=== PATIENT | female | born 2000 | race Two or more races ===

== ENCOUNTER 2025-05-13 06:02 | Inpatient (IN) | payer OTHER ==
[~2025-05-13] VITALS: Ht 162.6 cm; Wt 83.5 kg
[2025-05-13] MEDS ORDERED: OXYTOCIN/0.9 % SODIUM CHLORIDE 30 UNITS/500 ML BAG IV SCH (06:30)
[2025-05-13] MEDS ORDERED: TERBUTALINE SULFATE 1 MG/ML AMP SUB-Q PRN (06:30)
[2025-05-13] MEDS ORDERED: MAGNESIUM HYDROXIDE/AL HYDROX 30 ML CUP PO PRN (06:30)
[2025-05-13] MEDS ORDERED: LACTATED RINGER'S 1,000 ML IV PRN ×2 (06:30→12:15)
[2025-05-13] MEDS ORDERED: LACTATED RINGER'S 1,000 ML IV SCH ×3 (06:30→18:45)
[2025-05-13] MEDS ORDERED: LIDOCAINE HCL 1% 30 ML SDV INJ PRN (06:30)
[2025-05-13] MEDS ORDERED: CALCIUM CARBONATE 500 MG CHEW PO PRN (06:30)
[2025-05-13 06:37] LABS: MCH 23.4 PG (25.6-32.2); MCHC 31.7 g/dL (32.2-35.5); MCV 73.7 fL (79.4-94.8); RBC 4.19 M/uL (3.93-5.22)
[2025-05-13 07:07] LABS: ABO O; ANTIBODY SCREEN NEGATIVE; RH POSITIVE
[2025-05-13 07:14] LABS: AMPHETAMINES, URINE NEGATIVE (NEGATIVE); BARBITURATES, URINE NEGATIVE (NEGATIVE); BENZODIAZEPINE, URINE NEGATIVE (NEGATIVE); CANNABINOID, URINE NEGATIVE (NEGATIVE); COCAINE, URINE NEGATIVE (NEGATIVE); ECSTASY, URINE NEGATIVE (NEGATIVE); FENTANYL, URINE NEGATIVE (NEGATIVE); METHADONE, URINE NEGATIVE (NEGATIVE); OPIATES, URINE NEGATIVE (NEGATIVE); OXYCODONE, URINE NEGATIVE (NEGATIVE); PHENCYCLIDINE, URINE NEGATIVE (NEGATIVE)
[2025-05-13 07:15] VITALS: BP 111/72
[2025-05-13] MEDS ORDERED: OXYTOCIN/0.9 % SODIUM CHLORIDE 500 ML IV SCH ×2 (10:30→17:00)
[2025-05-13] MEDS ORDERED: LIDOCAINE 2% VISCOUS 6 ML SYR TOP ONE ×2 (12:15→17:00)
[2025-05-13] MEDS ORDERED: CEFAZOLIN SODIUM 2 GM in SODIUM CHLORIDE 0.9% 100 ML IV SCH (12:20)
[2025-05-13] MEDS ORDERED: BUPIVACAINE 0.75% IN DEXTROSE 2 ML AMP ONE (15:05)
[2025-05-13] MEDS ORDERED: LIDOCAINE HCL 2% 5 ML SDV ONE (15:05)
[2025-05-13] MEDS ORDERED: PHENYLEPHRINE HCL IN 0.9% NACL 1 MG/10 ML SYR ONE (15:06)
[2025-05-13] MEDS ORDERED: DEXAMETHASONE SOD PHOS 4 MG/ML VIAL ONE ×2 (15:06→16:15)
[2025-05-13] MEDS ORDERED: TRANEXAMIC ACID IN NACL,ISO-OS 0 ML IV ONE (15:10)
[2025-05-13] MEDS ORDERED: SODIUM CHLORIDE 0.9% 20 ML IV ONE (15:15)
[2025-05-13] MEDS ORDERED: LIDOCAINE 2% VISCOUS 6 ML SYR ONE (15:22)
[2025-05-13] MEDS ORDERED: OXYTOCIN 10 UNITS/ML VIAL ONE (15:54)
[2025-05-13] MEDS ORDERED: ATROPINE SULFATE 1 MG/ML VIAL ONE (15:56)
[2025-05-13] MEDS ORDERED: LACTATED RINGER'S 1,000 ML IV ONE (16:13)
[2025-05-13] MEDS ORDERED: SODIUM CHLORIDE 0.9% 60 ML IV ONE (16:15)
[2025-05-13] MEDS ORDERED: Ropivacaine HCl 0.5% 30 ML VIAL ONE (16:15)
[2025-05-13] MEDS ORDERED: METOCLOPRAMIDE HCL 10 MG/2 ML SDV IV PRN (17:00)
[2025-05-13] MEDS ORDERED: PROMETHAZINE HCL 25 MG SUPP PR PRN (17:00)
[2025-05-13] MEDS ORDERED: OXYCODONE/APAP 5/325 TAB PO PRN (17:00)
[2025-05-13] MEDS ORDERED: HYDROCODONE/ACETA 5/325 TAB PO PRN (17:00)
[2025-05-13] MEDS ORDERED: PROMETHAZINE HCL 25 MG TAB PO PRN (17:00)
[2025-05-13] MEDS ORDERED: OXYCODONE HCL 5 MG TAB PO PRN (17:00)
[2025-05-13] MEDS ORDERED: PROCHLORPERAZINE EDISYLATE 10 MG/2 ML VIAL IV PRN (17:00)
[2025-05-13 17:23] LABS: MCH 23.6 PG (25.6-32.2); MCHC 31.7 g/dL (32.2-35.5); MCV 74.5 fL (79.4-94.8); RBC 3.77 M/uL (3.93-5.22)
--- NOTE | 2025-05-13 17:23 | NUR ---
05/13/25 1723 Guadalupe Godoy 1643 PT ARRIVED TO PACU ON RA, PT DENIES CONCERNS. NO NAUSEA OR PAIN. VSS. PT UNABLE TO MOVE LEGS AND EDUCATION GIVEN. IV IN LEFT HAND, PLACED IN THE OR AND INFUSING WELL AND WNL. LEFT FORE ARM IV SL. HOB INCREASED SLIGHTLY PER REQUEST. 1700 PT RESTING IN BED AND DENIES CONCERNS. 1708 MD AT BEDSIDE TALKING TO PT.
[2025-05-13 17:25] VITALS: BP 134/80
[2025-05-13 17:38] LABS: INR 0.97 (0.80-1.30); PROTIME 12.2 Sec (11.2-14.2)
[2025-05-13] MEDS ORDERED: ACETAMINOPHEN 325 MG TAB PO PRN (17:45)
[2025-05-13 17:59] LABS: AST (SGOT) 19 U/L (15-37); GLOMERULAR FILTRATION RATE,EST 139 mL/min (>60); LACTATE DEHYDROGENASE 176 U/L (81-234); PROTEIN, TOTAL 6.8 g/dL (6.4-8.2); UREA NITROGEN 5 mg/dL (7-18)
[2025-05-13] MEDS ORDERED: KETOROLAC TROMETHAMINE 30 MG/ML VIAL IV PRN (18:00)
[2025-05-13] MEDS ORDERED: NALOXONE HCL 0.4 MG SYR IV PRN (18:00)
[2025-05-13] MEDS ORDERED: MORPHINE SULFATE 4 MG/ML VIAL IV PRN (18:00)
[2025-05-13] MEDS ORDERED: HYDROmorphone HCL 1 MG/ML SYR IV PRN (18:00)
[2025-05-13 18:01] LABS: ALT (SGPT) <6 U/L (14-59)
[2025-05-13 18:02] LABS: PROTEIN, RANDOM URINE 159.0 mg/dL (NOT ESTABLISHED)
[2025-05-13] MEDS ORDERED: CALCIUM GLUCONATE 1,000 MG/10 ML VIAL IV PRN (18:45)
[2025-05-13] MEDS ORDERED: MAGNESIUM SULFATE 500 ML IV SCH (18:45)
[2025-05-13] MEDS ORDERED: MAGNESIUM SULFATE 4 GM/100 ML BAG IV ONE (18:45)
[2025-05-13] MEDS ORDERED: KETOROLAC TROMETHAMINE 30 MG/ML VIAL IV SCH (20:00)
[2025-05-13 21:00] LABS: BASOPHILS 0.3 % (0.1-1.2); EOSINOPHILS 0.1 % (0.7-5.8); LYMPHOCYTES 9.7 % (19.3-51.7); MCH 23.8 PG (25.6-32.2); MCHC 32.0 g/dL (32.2-35.5); MCV 74.5 fL (79.4-94.8); MONOCYTES 1.6 % (4.7-12.5); NEUTROPHILS 87.9 % (34.0-71.1); RBC 4.11 M/uL (3.93-5.22)
[2025-05-13] MEDS ORDERED: SIMETHICONE 80 MG CHEW PO SCH (21:00)
[2025-05-13] MEDS ORDERED: SENNOSIDES/DOCUSATE 1 EA TAB PO SCH (21:00)
[2025-05-13 21:11] LABS: INR 0.96 (0.80-1.30); PROTIME 12.4 Sec (11.2-14.2)
[2025-05-14 05:23] LABS: MCH 23.8 PG (25.6-32.2); MCHC 32.3 g/dL (32.2-35.5); MCV 73.7 fL (79.4-94.8); RBC 3.57 M/uL (3.93-5.22)
[2025-05-14 05:40] LABS: ALT (SGPT) 14.0 U/L (14-59); AST (SGOT) 19.0 U/L (15-37); GLOMERULAR FILTRATION RATE,EST 133.0 mL/min (>60); PROTEIN, TOTAL 6.4 g/dL (6.4-8.2); UREA NITROGEN 6.0 mg/dL (7-18)
--- NOTE | 2025-05-14 06:02 | EKG ---
[facility] [address] [place], [place] [address] Signed Normal sinus rhythm Nonspecific T wave abnormality Abnormal ECG No previous ECGs available Confirmed by MAGDALENA RAND MD ([id number]) on 05/14/2025 6:02:42 AM Electronically Signed By: MAGDALENA RAND 05/14/25 0602 PATIENT NAME: MATTHEW HERNANDEZDEBRA JONES Electrocardiogram DATE OF : [birth year] PHYSICIAN: MAGDALENA RAND REPORT #: [id number] REPORT IS CONFIDENTIAL AND NOT TO BE RELEASED WITHOUT AUTHORIZATION
[2025-05-14] MEDS ORDERED: IBLOOD GLUCOSE TEST STRIP 1 EA TEST XX PRN (09:15)
[2025-05-14] MEDS ORDERED: DEXTROSE 50% 50 ML SYR IV PRN ×2 (09:15)
[2025-05-14] MEDS ORDERED: GLUCAGON,HUMAN RECOMBINANT 1 MG/ML VIAL SUB-Q PRN (09:15)
[2025-05-14] MEDS ORDERED: DEXTROSE 5% 1,000 ML IV PRN (09:15)
[2025-05-14] MEDS ORDERED: IBLOOD GLUCOSE TEST STRIP 1 EA TEST VI SCH (12:00)
[2025-05-14] MEDS ORDERED: INSULIN LISPRO 100 UNIT/ML ML SUB-Q SCH (12:00)
[2025-05-14] MEDS ORDERED: IBUPROFEN 600 MG TAB PO SCH (20:00)
== END 2025-05-15 14:20 | disposition home or self-care (01) | DRG 788 ==
LOC: FBC 06:02
PROVIDERS: Nurse Anesthetist, Certified Registered; ADMIT Obstetrics & Gynecology; ATTEND Obstetrics & Gynecology
PROC: 10D00Z1 Extraction of Products of Conception, Low, Open Approach (ICD-10-PCS; principal; 2025-05-13 14:00)
DX: O36.63X0 Maternal care for excessive fetal growth, third trimester, not applicable or unspecified (principal); O64.4XX0 Obstructed labor due to shoulder presentation, not applicable or unspecified; O24.424 Gestational diabetes mellitus in childbirth, insulin controlled; O99.02 Anemia complicating childbirth; D50.9 Iron deficiency anemia, unspecified; Z3A.39 39 weeks gestation of pregnancy; Z37.0 Single live birth
CPT/HCPCS: 01961; 36415; 80053; 80307; 82565; 82570; 82947; 83615; 83735; 84156; 84550; 85025; 85027; 85384; 85610; 85730; 86850; 86900; 86901; 93005; 93010; A9270; J0165; J0461; J0688; J1100; J1815; J1885; J2003; J2405; J2590; J2795; J3475; J7121

== ENCOUNTER 2025-05-17 02:06 | Emergency (ER) | payer OTHER ==
[~2025-05-17] VITALS: Ht 162.6 cm; Wt 77.4 kg
--- OUTSIDE RECORDS SUMMARY | ~2025-05-17 | XMS | Continuity of Care Document ---
Demographics + + + | Address | [address] | | | [place] [address] | + + + | Preferred Language | Unknown | + + + | Marital Status | | + + + | Muslim Affiliation | Unknown | + + + | Race | Unknown | + + + | Ethnic Group | Unknown | + + + Author + + + | Author | [facility] | + + + | Organization | [facility] | + + + | Address | [address] | | | [place] [address] | + + + | Phone | | + + + Care Team Providers + + + + | Care Certified Tumor Registrar Name | Role | Phone | + + + + Unavailable | Unavailable | + + + + Unavailable | Unavailable | + + + + Unavailable | Unavailable | + + + + Allergies No information. Encounters No information. Functional Status No information. Immunizations No information. Medications No information. Problems No information. Procedures + + + + | date | description | facility | + + + + | 2025-05-13 00:00 | section | [facility] | | | | [facility] | + + + + | 2025-05-13 00:00 | section | [facility] | | | | [facility] | + + + + Results/Labs +--------+--------+ +---------+--------+---------+ | test | date | facility | value | unit | notes | +--------+--------+ +---------+--------+---------+ + + | Result panel 1 | + + + + + + + + + | | 2025-05-13 | | NEGATIVE | (missing) | (missing) | | Amphetamines | 06:15:07 | [facility] | | | | | Ur Ql | [facility] | Scn>500 | | [facility] | | | | ng/mL | | [facility] | | | | + + + + + + + + + | Result panel 2 | + + + + + + + + + | | 2025-05-13 | | NEGATIVE | (missing) | (missing) | | Barbiturates | 06:15:07 | [facility] | | | | | Ur Ql | [facility] | Scn>300 | | [facility] | | | | | ng/mL | | [facility] | | | | + + + + + + + + + | Result panel 3 | + + + + + + + + + | Benzodiaz | 2025-05-13 | | NEGATIVE | (missing) | (missing) | | Ur Ql | 06:15:07 | [facility] | | | | | Scn>300 | [facility] ng/mL | | [facility] | | | | + + + + + + + + + | Result panel 4 | + + + + + + + + + | Cocaine Ur | 2025-05-13 | | NEGATIVE | (missing) | (missing) | | Ql Scn | 06:15:07 | [facility] | | | | | | [facility] | [facility] | | [facility] | | | | + + + + + + + + + | Result panel 5 | + + + + + + + + + | | 2025-05-13 | | NEGATIVE | (missing) | (missing) | | Buprenorphin | 06:15:07 | [facility] | | | | | e Ur Ql Scn | [facility] | [facility] | | | | + + + + + + + + + | Result panel 6 | + + + + + + + + + | oxyCODONE | 2025-05-13 | | NEGATIVE | (missing) | (missing) | | Ur Ql Scn | 06:15:07 | [facility] | | | | | | [facility] | [facility] | | | | + + + + + + + + + | Result panel 7 | + + + + + + + + + | MDMA Ur Ql | 2025-05-13 | | NEGATIVE | (missing) | (missing) | | Scn | 06:15:07 | [facility] | | | | | | [facility] | [facility] | | | | + + + + + + + + + | Result panel 8 | + + + + + + + + + | Methadone | 2025-05-13 | | NEGATIVE | (missing) | (missing) | | Ur Ql | 06:15:07 | [facility] | | | | | Scn>300 | [facility] | ng/mL | | [facility] | | | | + + + + + + + + + | Result panel 9 | + + + + + + + + + | Opiates Ur | 2025-05-13 | | NEGATIVE | (missing) | (missing) | | Ql Scn | 06:15:07 | [facility] | | | | | | [facility] | [facility] | | | | + + + + + + + + + | Result panel 10 | + + + + + + + + + | PCP Ur Ql | 2025-05-13 | | NEGATIVE | (missing) | (missing) | | Scn>25 ng/mL | 06:15:07 | [facility] | | | | | | [facility] | | | | + + + + + + + + + | Result panel 11 | + + + + + + + + + | THC Ur Ql | 2025-05-13 | | NEGATIVE | (missing) | (missing) | | Scn>50 ng/mL | 06:15:07 | [facility] | | | | | [facility] | | | | + + + + + + + + + | Result panel 12 | + + + + + + + + + | fentaNYL Ur | 2025-05-13 | | NEGATIVE | (missing) | (missing) | | Ql Scn | 06:15:07 | [facility] | | | | | | [facility] | [facility] | | | | + + + + + + + + + | Result panel 13 | + + + + + +-----+ + + | ABO Group | 2025-05-13 | | O | (missing) | (missing) | | Bld | :30: | [facility] | | | | + + + +-----+ + + + + | Result panel 14 | + + + + + + + + + | Rh Bld | 2025-05-13 | | POSITIVE | (missing) | (missing) | | | 06:30:07 | [facility] | | | | | [facility] | | | | + + + + + + + + + | Result panel 15 | + + + + + + + + + | IAT Poly-Sp | 2025-05-13 | | NEGATIVE | (missing) | (missing) | | Reag SerPl | :30:07 | [facility] | | | | | Ql | [facility] | | | | + + + + + + + + + | Result panel 16 | + + + + + + + + + | Transf Band | 2025-05-13 | | BLOOD IN | (missing) | (missing) | | Num Patient | 06:30:07 | [facility] | LAB | | | | | [facility] | | | | + + + + + + + + + | Result panel 17 | + + + + + +-------+---------+ + | Urate | 2025-05-13 | | 5.4 | mg/dL | (missing) | | SerPl-[facility] | 17:15:07 | [facility] | | | | | [facility] | | | | + + + +-------+---------+ + + + | Result panel 18 | + + + + + +-------+---------+ + | Magnesium | 2025-05-13 | | 1.7 | mg/dL | (missing) | | SerPl-mCnc | 17:15:07 | [facility] | | | | | | | - | | | | | | | [facility] | | | | + + + +-------+---------+ + + + | Result panel 19 | + + + + + +-------+ + + | | 2025-05-13 | | 176 | (missing) | (missing) | | (unavailable | 17:15:07 | [facility] | | | | | ) | [facility] | | | | + + + +-------+ + + + + | Result panel 20 | + + + + + +---------+---------+ + | Creat | 2025-05-13 | | 40.00 | mg/dL | (missing) | | Ur-mCnc | 17:52:07 | [facility] | | | | | | | - | | | | | | | [facility] | | | | + + + +---------+---------+ + + + | Result panel 21 | + + + + + + + + + | Prot/Creat | 2025-05-13 | | 3.9700 | (missing) | (missing) | | Ur-Rto | 17:52:07 | [facility] | | | | | [facility] | | | | + + + + + + + + + | Result panel 22 | + + + + + +-------+---------+ + | Prot | 2025-05-13 | | 159 | mg/dL | (missing) | | Ur-mCnc | 17:52:07 | [facility] | | | | | | [facility] | [facility] | | | | + + + +-------+---------+ + + + | Result panel 23 | + + + + + +--------+ + + | Neutrophils | 2025-05-13 | | 87.9 | (missing) | (missing) | | NFr Bld | 20:52:07 | [facility] | | | | | Auto | [facility] | | | | + + + +--------+ + + + + | Result panel 24 | + + + + + +-------+ + + | Lymphocytes | 2025-05-13 | | 9.7 | (missing) | (missing) | | NFr Bld | 20:52:07 | [facility] | | | | | Auto | | [facility] | | | | + + + +-------+ + + + + | Result panel 25 | + + + + + +-------+ + + | Monocytes | 2025-05-13 | | 1.6 | (missing) | (missing) | | NFr Bld Auto | 20:52:07 | [facility] | | | [facility] | | | | + + + +-------+ + + + + | Result panel 26 | + + + + + +-------+ + + | Eosinophil | 2025-05-13 | | 0.1 | (missing) | (missing) | | NFr Bld Auto | 20:52:07 | [facility] | | | | + + + +-------+ + + + + | Result panel 27 | + + + + + +-------+ + + | Basophils | 2025-05-13 | | 0.3 | (missing) | (missing) | | NFr Bld Auto | 20:52:07 | [facility] | | | | [facility] | | | | + + + +-------+ + + + + | Result panel 28 | + + + + + +--------+ + + | Prothrombin | 2025-05-13 | | 12.4 | (missing) | (missing) | | time | 20:52:07 | [facility] | | | | + + + +--------+ + + + + | Result panel 29 | + + + + + +--------+ + + | INR PPP | 2025-05-13 | | 0.96 | (missing) | (missing) | | | 20:52:07 | [facility] | | | | + + + +--------+ + + + + | Result panel 30 | + + + + + +--------+ + + | aPTT PPP | 2025-05-13 | | 28.3 | (missing) | (missing) | | | 20:52:07 | [facility] | | | [facility] | | | | + + + +--------+ + + + + | Result panel 31 | + + + + + +-------+---------+ + | Fibrinogen | 2025-05-13 | | 443 | mg/dL | (missing) | | PPP-mCnc | 20:52:07 | [facility] | | | | | [facility] | | | | + + + +-------+---------+ + + + | Result panel 32 | + + + + + +---------+ + + | WBC # Bld | 2025-05-14 | | 13.95 | (missing) | (missing) | | Auto | 05:16:07 | [facility] | | | | | [facility] | | | | + + + +---------+ + + + + | Result panel 33 | + + + + + +-----+---------+ + | BUN | 2025-05-14 | | 6 | mg/dL | (missing) | | [facility] | 05:16:07 | [facility] | | | [facility] | | | | + + + +-----+---------+ + + + | Result panel 34 | + + + + + +--------+---------+ + | Creat | 2025-05-14 | | 0.54 | mg/dL | (missing) | | [facility] | 05:16:07 | [facility] | | [facility] | | | | + + + +--------+---------+ + + + | Result panel 35 | + + + + + +-------+ + + | eGFRcr | 2025-05-14 | | 133 | (missing) | (missing) | | SerPlBld | 05:16:07 | [facility] | | | | | CKD-EPI 2020 | [facility] | | | | + + + +-------+ + + + + | Result panel 36 | + + + + + +---------+ + + | BUN/Creat | 2025-05-14 | | 11.11 | (missing) | (missing) | | SerPl | 05:16:07 | [facility] | | | | | | [facility] | | | | + + + +---------+ + + + + | Result panel 37 | + + + + + +-------+ + + | Sodium | 2025-05-14 | | 133 | (missing) | (missing) | | [facility] | 05:16:07 | [facility] | | | [facility] | | | | + + + +-------+ + + + + | Result panel 38 | + + + + + +-------+ + + | Potassium | 2025-05-14 | | 4.3 | (missing) | (missing) | | SerPl-sCnc | 05:16:07 | [facility] | | | | | | [facility] | | | | + + + +-------+ + + + + | Result panel 39 | + + + + + +------+ + + | Chloride | 2025-05-14 | | 98 | (missing) | (missing) | | SerPl-sCnc | 05:16:07 | [facility] | | | | | | [facility] | | | | + + + +------+ + + + + | Result panel 40 | + + + + + +------+ + + | CO2 | 2025-05-14 | | 24 | (missing) | (missing) | | SerPl-sCnc | 05:16:07 | [facility] | | | | | | [facility] | | | | + + + +------+ + + + + | Result panel 41 | + + + + + +--------+ + + | Anion Gap | 2025-05-14 | | 15.3 | (missing) | (missing) | | SerPl | 05:16:07 | [facility] | | | | | Calculated.4 | | [facility] | [facility] | I[facility]-sCnc | | [facility] | | | | + + + +--------+ + + + + | Result panel 42 | + + + + + +-------+---------+ + | Calcium | 2025-05-14 | | 8.0 | mg/dL | (missing) | | SerPl-mCnc | 05:16:07 | [facility] | | | | | | [facility] | | | | + + + +-------+---------+ + + + | Result panel 43 | + + + + + +--------+ + + | RBC # Bld | 2025-05-14 | | 3.57 | (missing) | (missing) | | Auto | 05:16:07 | [facility] | | | | | [facility] | | | | + + + +--------+ + + + + | Result panel 44 | + + + + + +-------+ + + | Prot | 2025-05-14 | | 6.4 | (missing) | (missing) | | [facility] | 05:16:07 | [facility] | | | | | [facility] | | | | + + + +-------+ + + + + | Result panel 45 | + + + + + +-------+ + + | Albumin | 2025-05-14 | | 2.2 | (missing) | (missing) | | [facility] | 05:16:07 | [facility] | | | | | | [facility] | | | | + + + +-------+ + + + + | Result panel 46 | + + + + + +-------+ + + | Globulin | 2025-05-14 | | 4.2 | (missing) | (missing) | | Ser[facility] | 05:16:07 | [facility] | | | | + + + +-------+ + + + + | Result panel 47 | + + + + + +--------+ + + | | 2025-05-14 | | 0.52 | (missing) | (missing) | | Albumin/Glob | 05:16:07 | [facility] | | | | | SerPl | [facility] | | | | + + + +--------+ + + + + | Result panel 48 | + + + + + +-------+---------+ + | Bilirub | 2025-05-14 | | 0.2 | mg/dL | (missing) | | SerPl-mCnc | 05:16:07 | [facility] | | | | | [facility] | | | | + + + +-------+---------+ + + + | Result panel 49 | + + + + + +------+ + + | AST | 2025-05-14 | | 19 | (missing) | (missing) | | SerPl-cCn | 05:16:07 | [facility] | | | | | [facility] | | | | + + + +------+ + + + + | Result panel 50 | + + + + + +------+ + + | ALT | 2025-05-14 | | 14 | (missing) | (missing) | | SerPl-cCn | 05:16:07 | [facility] | | | | | [facility] | | | | + + + +------+ + + + + | Result panel 51 | + + + + + +-------+ + + | ALP | 2025-05-14 | | 116 | (missing) | (missing) | | SerPl-cCnc | 05:16:07 | [facility] | | | | + + + +-------+ + + + + | Result panel 52 | + + + + + +-------+ + + | Hgb | 2025-05-14 | | 8.5 | (missing) | (missing) | | Bld-mCnc | 05:16:07 | [facility] | | | | + + + +-------+ + + + + | Result panel 53 | + + + + + +--------+ + + | Hct VFr.DF | 2025-05-14 | | 26.3 | (missing) | (missing) | | Bld Auto | 05:16:07 | [facility] | | | | + + + +--------+ + + + + | Result panel 54 | + + + + + +--------+ + + | RBC Auto | 2025-05-14 | | 73.7 | (missing) | (missing) | | | 05:16:07 | [facility] | | | | + + + +--------+ + + + + | Result panel 55 | + + + + + +--------+ + + | MCH RBC Qn | 2025-05-14 | | 23.8 | (missing) | (missing) | | Auto | 05:16:07 | [facility] | [facility] | | | - | | | | | | | [facility] | | | | + + + +--------+ + + + + | Result panel 56 | + + + + + +--------+ + + | MCHC RBC | 2025-05-14 | | 32.3 | (missing) | (missing) | | Auto-EntMCnc | 05:16:07 | [facility] | | | | | | | - | | | | | | | [facility] | | | | + + + +--------+ + + + + | Result panel 57 | + + + + + +-------+ + + | Platelet # | 2025-05-14 | | 306 | (missing) | (missing) | | Bld Auto | 05:16:07 | [facility] | | | | + + + +-------+ + + + + | Result panel 58 | + + + + + +-------+---------+ + | Glucose | 2025-05-14 | | 160 | mg/dL | (missing) | | [facility] | 05:16:07 | [facility] | | | | | | | - | | | | | | | [facility] | | | | + + + +-------+---------+ + + + | Result panel 59 | + + + + + + + + + | | 2025-05-14 | | (missing) | (missing) | (missing) | | Electrocardi | 06:02 | [facility] | | | | | ogram | [facility] | | | | + + + + + + + + + | Result panel 60 | + + + + + +-------+ + + | Glucose | 2025-05-15 | | 105 | (missing) | (missing) | | [facility] | 13:19:07 | [facility] | | | | + + + +-------+ + + Social History +--------+ + + | date | description | facility | +--------+ + + Vital Signs + + + +---------+ | date | measurement | value | units | + + + +---------+ | 2025-05-13 00:00 | BMI | 31.6 | kg/m2 | + + + +---------+ | 2025-05-13 00:00 | BP_diastolic | 80 | mmHg | + + + +---------+ | 2025-05-13 00:00 | BP_systolic | 134 | mmHg | + + + +---------+ | 2025-05-13 00:00 | heart_rate | 64 | /min | + + + +---------+ | 2025-05-13 00:00 | height_metric | 162.6 | cm | + + + +---------+ | 2025-05-13 00:00 | height_standard | 64.047912 | in | + + + +---------+ | 2025-05-13 00:00 | o2_saturation | 99 | % | + + + +---------+ | 2025-05-13 00:00 | respiration_rate | 18 | /min | + + + +---------+ | 2025-05-13 00:00 | | 97.8 | F | | | temperature_standar | | | | | d | | | + + + +---------+ | 2025-05-13 00:00 | weight_metric | 83.5 | kg | + + + +---------+ | 2025-05-13 00:00 | weight_standard | 184.086 | lb | + + + +---------+"
[2025-05-17 02:26] LABS: BASOPHILS 0.2 % (0.1-1.2); EOSINOPHILS 3.3 % (0.7-5.8); LYMPHOCYTES 29.4 % (19.3-51.7); MCH 23.8 PG (25.6-32.2); MCHC 30.9 g/dL (32.2-35.5); MCV 76.8 fL (79.4-94.8); MONOCYTES 4.4 % (4.7-12.5); NEUTROPHILS 62.1 % (34.0-71.1); RBC 3.62 M/uL (3.93-5.22)
[2025-05-17 02:36] LABS: ALT (SGPT) 52.0 U/L (14-59); AST (SGOT) 46.0 U/L (15-37); GLOMERULAR FILTRATION RATE,EST 141.0 mL/min (>60); PROTEIN, TOTAL 7.4 g/dL (6.4-8.2); UREA NITROGEN 8.0 mg/dL (7-18)
[2025-05-17 02:45] LABS: LACTATE DEHYDROGENASE 352.0 U/L (81-234)
[2025-05-17 02:48] LABS: BLOOD/HGB, URINE SMALL (Negative); KETONE, URINE NEGATIVE (Negative); LEUK ESTERASE, URINE NEGATIVE (negative); NITRITE, URINE NEGATIVE (negative)
[2025-05-17 03:05] LABS: BACTERIA, URINE RARE /hpf (negative); CASTS, URINE NONE SEEN \\lpf; CRYSTALS, URINE NONE SEEN (0-1+); EPITHELIAL CELLS, URINE SQUAMOUS 2+ /lpf (0-1+); REFLEX CULTURE, URINE No (No)
[2025-05-17 03:11] LABS: PROTEIN, RANDOM URINE 25.0 mg/dL (NOT ESTABLISHED)
[2025-05-17] MEDS ORDERED: LABETALOL HCL200 MG PO (03:53)
[2025-05-17 04:05] VITALS: BP 128/86
--- NOTE | 2025-05-18 22:22 | EKG ---
[facility] [address] [place] [address] Signed Normal sinus rhythm with sinus arrhythmia Cannot rule out Anterior infarct , age undetermined Abnormal ECG When compared with ECG of 13-MAY-2025 18:24, No significant change was found Confirmed by Jessica Bear MD () on 05/18/2025 10:22:18 PM Electronically Signed By: JESSICA BEAR MD 05/18/252221 PATIENT NAME: HERNANDEZNICK Electrocardiogram DATE OF : [birth year] PHYSICIAN: JESSICA BEAR MD REPORT #: [id number] REPORT IS CONFIDENTIAL AND NOT TO BE RELEASED WITHOUT AUTHORIZATION
== END 2025-05-17 04:05 | disposition home or self-care (01) ==
LOC: ED 02:06
PROVIDERS: Family Medicine
DX: O13.5 Gestational [pregnancy-induced] hypertension without significant proteinuria, complicating the puerperium (principal)
CPT/HCPCS: 36415; 71045; 71260; 80053; 81001; 82570; 83615; 84156; 84484; 84550; 85025; 85379; 93005; 93010; 96374; 99285-25; J0360; Q9967